=== PATIENT | male | born 1960 | race Caucasian/White ===

== ENCOUNTER 2017-05-03 11:15 | Outpatient (RCR) | payer BC | END 2017-06-24 16:13 | disposition home or self-care (01) | LOC: EDBD | PROVIDERS: ATTEND Nurse Practitioner Community Health | DX: M54.16 Radiculopathy, lumbar region (principal) ==

== ENCOUNTER 2023-01-07 11:36 | Observation (INO) | payer BC, OTHER ==
[~2023-01-07] VITALS: Ht 183 cm; Wt 72.5 kg
[2023-01-07] MEDS ORDERED: NS IV 1000 ML 1,000 ML IV STA (11:59)
--- NOTE | 2023-01-07 12:02 | ED General ---
General Chief Complaint: Glucose Problems Stated Complaint: HIGH BLOOD SUGAR Source of Information: Patient Exam Limitations: No Limitations (DIOMEDES ARNOLD) History of Present Illness Date Seen by Provider: Jan 07, 2023 Time Seen by Provider: 12:00 Initial Comments Patient is a 62-year-old male with a history of hypothyroidism, type 1 diabetes who presents ED for generalized weakness nausea vomiting. Symptoms started this morning. States he does have an insulin pump. Was not sure that his insulin pump was working last night. Works at [employer]. Found to have a blood sugar over 600 and was sent to the ED for further evaluation. Patient did not bolus himself. Denies of any visual changes, chest pain, fever, chills, body aches, cough, shortness of breath, abdominal pain, diarrhea, frequent urination, increa sed thirst. History of DKA in the past. (DIOMEDES ARNOLD) Allergies and Home Medications Allergies Coded Allergies: No Known Drug Allergies (Unverified , 01/07/23) Patient Home Medication List Home Medication List Reviewed: Yes (DIOMEDES ARNOLD) Aspirin (Aspirin EC) 81 Mg Tablet.dr, 81 MG PO DAILY, (Reported) Entered as Reported by: ESTHER LEON on 01/07/231505 Last Action: Reviewed Insulin Lispro (Insulin Lispro) 100 Unit/Ml Vial, UNIT SQ UD, (Reported) Entered as Reported by: ESTHER LEON on 01/07/231505 Last Action: Reviewed Levothyroxine Sodium (Levothyroxine Sodium) 150 Mcg Tablet, 150 MCG PO DAILY, (Reported) Entered as Reported by: ESTHER LEON on 01/07/231505 Last Action: Reviewed Review of Systems Review of Systems Constitutional: No chills, No diaphoresis, No fever; malaise, weakness EENTM: No ear pain, No blurred vision, No double vision Respiratory: No cough, No dyspnea on exertion Cardiovascular: No chest pain, No edema Gastrointestinal: No abdominal pain, No diarrhea; nausea, vomiting Genitourinary: No decreased output, No discharge Musculoskeletal: No back pain, No joint pain Skin: No change in color, No change in hair/nails (DIOMEDES ARNOLD) All Other Systems Reviewed Negative Unless Noted: Yes (DIOMEDES ARNOLD) Physical Exam Vital Signs Vital Signs - First Documented 01/07/23 11:53 Temp 36.0 Pulse 94 Resp 16 B/P (MAP) 141/78 (99) Pulse Ox 98 O2 Delivery Room Air (TRENTON KRAFT MD) Vital Signs Capillary Refill : (DIOMEDES ARNOLD) Height, Weight, BMI Height: '" Weight: lbs. oz. kg; BMI Method: General Appearance: No Apparent Distress, WD/WN Eyes: Bilateral Eye Normal Inspection, Bilateral Eye PERRL, Bilateral Eye EOMI HEENT: PERRL/EOMI, TMs Normal, Normal ENT Inspection, Pharynx Normal Neck: Full Range of Motion, Normal Inspection, Non Tender, Supple Respiratory: Chest Non Tender, Lungs Clear, Normal Breath Sounds, No Accessory Muscle Use, No Respiratory Distress Cardiovascular: Regular Rate, Rhythm, No Edema, No Gallop, No JVD Gastrointestinal: Normal Bowel Sounds, No Organomegaly, No Pulsatile Mass, Non Tender Extremity: Normal Capillary Refill, Normal Inspection, Normal Range of Motion, Non Tender Neurologic/Psychiatric: Alert, Oriented x3, No Motor/Sensory Deficits, Normal Mood/Affect, firewall engineer II-XII Norm as Tested Skin: Normal Color, Warm/Dry (DIOMEDES ARNOLD) Progress/Results/Core Measures Suspected Sepsis SIRS Temperature: Pulse: Respiratory Rate: Laboratory Tests 01/07/23 12:11: White Blood Count 12.6H Blood Pressure / Mean: Laboratory Tests 01/07/23 12:11: Creatinine 2.22H, Platelet Count 248, Total Bilirubin 1.2H (DIOMEDES ARNOLD) Results/Orders Lab Results Laboratory Tests Test 01/07/23 12:11 Range/Units White Blood Count 12.6 H 4.3-11.0 10^3/uL Red Blood Count 3.93 L 4.30-5.52 10^6/uL Hemoglobin 11.6 L 13.3-17.7 g/dL Hematocrit 35 L 40-54 % Mean Corpuscular Volume 88 80-99 fL Mean Corpuscular Hemoglobin 30 25-34 pg Mean Corpuscular Hemoglobin Concent 34 32-36 g/dL Red Cell Distribution Width 12.1 10.0-14.5 % Platelet Count 248 130-400 10^3/uL Mean Platelet Volume 9.7 9.0-12.2 fL Immature Granulocyte % (Auto) 1 % Neutrophils (%) (Auto) 87 H 42-75 % Lymphocytes (%) (Auto) 8 L 12-44 % Monocytes (%) (Auto) 3 0-12 % Eosinophils (%) (Auto) 0 0-10 % Basophils (%) (Auto) 1 0-10 % Neutrophils # (Auto) 11.0 H 1.8-7.8 10^3/uL Lymphocytes # (Auto) 1.0 1.0-4.0 10^3/uL Monocytes # (Auto) 0.4 0.0-1.0 10^3/uL Eosinophils # (Auto) 0.0 0.0-0.3 10^3/uL Basophils # (Auto) 0.1 0.0-0.1 10^3/uL Immature Granulocyte # (Auto) 0.1 0.0-0.1 10^3/uL Neutrophils % (Manual) 93 % Lymphocytes % (Manual) 3 % Monocytes % (Manual) 3 % Eosinophils % (Manual) 0 % Basophils % (Manual) 1 % Band Neutrophils 0 % Blood Morphology Comment NORMAL Venous Blood pH 7.21 L 7.31-7.41 Venous Blood Partial Pressure CO2 44 40-52 MMHG Venous Blood HCO3 17 L 22-28 MMOL/L Sodium Level 125 *L 135-145 MMOL/L Potassium Level 5.5 H 3.6-5.0 MMOL/L Chloride Level 87 L 98-107 MMOL/L Carbon Dioxide Level 15 L 21-32 MMOL/L Anion Gap 23 H 5-14 MMOL/L Blood Urea Nitrogen 40 H 7-18 MG/DL Creatinine 2.22 H 0.60-1.30 MG/DL Estimat Glomerular Filtration Rate 32 BUN/Creatinine Ratio 18 Glucose Level 764 *H 70-105 MG/DL Calcium Level 9.6 8.5-10.1 MG/DL Corrected Calcium 9.4 8.5-10.1 MG/DL Magnesium Level 2.4 1.6-2.4 MG/DL Total Bilirubin 1.2 H 0.1-1.0 MG/DL Aspartate Amino Transf (AST/SGOT) 33 5-34 U/L Alanine Aminotransferase (ALT/SGPT) 43 0-55 U/L Alkaline Phosphatase 79 40-136 U/L Total Protein 7.9 6.4-8.2 GM/DL Albumin 4.2 3.2-4.5 GM/DL Lipase 29 8-78 U/L Beta-Hydroxybutyrate (Chem panel) 8.76 H 0.00-0.27 MMOL/L (TRENTON KRAFT MD) Medications Given in ED Current Medications Medications Dose Ordered Sig/Annia Route Start Time Stop Time Status Last Admin Dose Admin Insulin Human Regular 10 unit ONCE ONCE SC 01/07/23 12:45 01/07/23 12:46 DC 01/07/23 13:14 10 UNIT (TRENTON KRAFT MD) Vital Signs/I&O 01/07/23 01/07/23 01/07/23 11:53 13:45 13:45 Temp 36.0 Pulse 94 81 89 Resp 16 16 B/P (MAP) 141/78 (99) 107/50 107/54 (71) Pulse Ox 98 97 97 O2 Delivery Room Air Room Air Room Air (TRENTON KRAFT MD) Vital Signs/I&O Capillary Refill : (DIOMEDES ARNOLD) Departure Communication (PCP) History of hypothyroidism type I diabetic with an insulin pump who presents ED for nausea weakness vomiting. Was found to be hyperglycemic at the clinic was sent to ED for further evaluation. Patient alert and orient x4. GCS of 15. Vital signs stable. Blood sugar was over 6 700. DKA protocol and work-up was initiated. Differential diagnosis hyperglycemia hyperosmolar state, DKA, viral syndrome. White blood count 12.6, hemoglobin 11. Chemistry showed sodium 125, chloride 87, creatinine 2.22, GFR 32, potassium 5.5. Concern for CARLTON likely secondary to dehydration. blood sugar 764. Beta hydroxybutyrate 8. Anion gap 23 and a VBG pH 7.21. Concerning for DKA. Started on a liter of fluid. Received bolus insulin 10. Patient did not bolus himself before arrival. Denies any chest pain short of breath fever chills body aches. Patient was not able to obtain a urinalysis. Patient was discussed with Dr. Anne hospitalist who agreed accept patient in the unit for insulin drip. (DIOMEDES ARNOLD) Impression Primary Impression: DKA (diabetic ketoacidosis) Disposition: ADMITTED INPATIENT Condition: Stable Admissions Decision to Admit Reason: Admit from ER (General) Decision to Admit/Date: Jan 07, 2023 Time/Decision to Admit Time: 12:35 (DIMOEDES ARNOLD) Departure-Patient Inst. Referrals: ESTHER PARSONS DO (PCP/Family) Primary Care Physician ATTENDING PHYSICIAN NOTE: I was physically present as attending physician in the emergency department during the care of this patient. I received phone report from Dr. Parsons regarding the patient's condition in the clinic. This information was passed on to CLAUDIA Palma, before patient's arrival. I did not personally interview or examine this patient, and I was not otherwise directly involved in the decision making or delivery of care for this patient. (TRENTON KRAFT MD) DIOMEDES ARNOLD Jan 07, 2023 12:02 TRENTON KRAFT MD Jan 07, 2023 17:00
[2023-01-07 12:19] LABS: BASOPHILS # (AUTO) 0.1 10^3/uL (0.0-0.1); BASOPHILS % (AUTO) 1 % (0-10); EOSINOPHILS % (AUTO) 0 % (0-10); HEMATOCRIT 35 % (40-54); HEMOGLOBIN 11.6 g/dL (13.3-17.7); LYMPHOCYTES % (AUTO) 8 % (12-44); MEAN CORPUSCULAR HEMOGLOBIN 30 pg (25-34); MEAN CORPUSCULAR HGB CONC 34 g/dL (32-36); MEAN CORPUSCULAR VOLUME 88 fL (80-99); MEAN PLATELET VOLUME 9.7 fL (9.0-12.2); MONOCYTES # (AUTO) 0.4 10^3/uL (0.0-1.0); MONOCYTES % (AUTO) 3 % (0-12); NEUTROPHILS % (AUTO) 87 % (42-75); PLATELET COUNT 248 10^3/uL (130-400); WHITE BLOOD COUNT 12.6 10^3/uL (4.3-11.0)
[2023-01-07 12:29] LABS: ALBUMIN 4.2 GM/DL (3.2-4.5)
[2023-01-07 12:30] LABS: CALCIUM 9.6 MG/DL (8.5-10.1)
[2023-01-07 12:31] LABS: TOTAL PROTEIN 7.9 GM/DL (6.4-8.2)
[2023-01-07 12:33] LABS: BILIRUBIN,TOTAL 1.2 MG/DL (0.1-1.0)
[2023-01-07 12:35] LABS: CREATININE SERUM 2.22 MG/DL (0.60-1.30)
[2023-01-07 12:38] LABS: MAGNESIUM 2.4 MG/DL (1.6-2.4)
[2023-01-07] MEDS ORDERED: inSUlin (REGULAR) HUMAN 1 UNIT/0.01 ML (CHARGE PER UNIT) SC ONE (12:45)
[2023-01-07 12:56] LABS: BAND NEUTROPHILS 0 %; BASOPHILS % (MANUAL) 1 %; EOSINOPHILS % (MANUAL) 0 %; LYMPHOCYTES % (MANUAL) 3 %; MONOCYTES % (MANUAL) 3 %; NEUTROPHILS % (MANUAL) 93 %; RBC MORPH NORMAL
[2023-01-07 13:06] LABS: POTASSIUM 5.5 MMOL/L (3.6-5.0)
--- NOTE | 2023-01-07 13:43 | History & Physical-Hospitalist ---
CYNTHIA VERA 01/07/23 1343: History of Present Illness HPI/Chief Complaint This is 62 year old male with a history of T1D and hypothyroidism who this morning had a level of 600 blood glucose. Patient woke up and felt generalized weakness, nausea, vomitting, dry mouth, and muscles ache- which all started at 5:30 AM. Patient believes his insulin pump was not working- unsure why that is. Patient reports that this has happened three times in his past- however, he is usually pretty controlled. Patient feels a little dehydrated currently and fatigued. He denies any fever, shortness of breath, and chest pain currently. Source: patient Date Seen 01/07/23 Time Seen by a Provider: 13:41 Attending Physician Hector Shepherd DO PCP Admitting Physician: Attending Physician: Referring Physician Date of Admission Home Medications & Allergies Home Medications Reviewed patient Home Medication Reconciliation performed by pharmacy medication reconciliations remote sensing technician and/or nursing. Patients Allergies have been reviewed. Allergies Allergies Coded Allergies No Known Drug Allergies ([id number]/16/23) Past Qtlmrna-Qopafr-Gtfdng Hx Patient Social History Marrital Status: Tobacco Use?: No Use of E-Cig and/or Vaping dev: No Substance use?: No Alcohol Use?: No Pt feels they are or have been: No Immunizations Up To Date Tetanus Booster (TDap): Less Than 5 Years Current Status Communicates: Verbally Primary Language: Jamaican Preferred Spoken Language: Jamaican Sensory deficits: Vision impairment Implanted or Applied Medical D: Medication pump Past Medical History Surgeries: Orthopedic (right shoulder, carpal tunnel, ulnar nerve entrapment) Review of Systems Constitutional: No fever EENTM: vision loss (pt reports decreasing vision); No ear pain Respiratory: No cough, No short of breath Gastrointestinal: No abdominal pain, No constipation Genitourinary: No decreased output, No discharge Musculoskeletal: muscle pain Skin: No change in color, No change in hair/nails Psychiatric/Neurological: Denies Anxiety, Denies Depressed Physical Exam Physical Exam Vital Signs Vital Signs - First Documented 01/07/23 11:53 Temp 36.0 Pulse 94 Resp 16 B/P (MAP) 141/78 (99) Pulse Ox 98 O2 Delivery Room Air Capillary Refill : Height, Weight, BMI Height: '" Weight: lbs. oz. kg; 21.00 BMI Method: Eyes: Bilateral Eye Normal Inspection HEENT: PERRL/EOMI, TMs Normal Neck: Full Range of Motion, Non Tender Respiratory: No Accessory Muscle Use, No Respiratory Distress Cardiovascular: Regular Rate, Rhythm, No Edema Gastrointestinal: Normal Bowel Sounds, No Pulsatile Mass Back: Normal Inspection, No CVA Tenderness Extremity: Normal Capillary Refill, Normal Range of Motion Neurologic/Psychiatric: Alert, Oriented x3, No Motor/Sensory Deficits Skin: Normal Color, Warm/Dry Results Results/Procedures Labs Laboratory Tests 01/07/23 12:11 Patient resulted labs reviewed. Assessment/Plan Admission Diagnosis Assessment: Diabetic Ketoacidosis Electrolyte abnormalities Hypothyroidism Dehydration Plan: Admit patient IV Insulin IV saline Monitor electrolytes Continue home medications CLARICE BLACK DO 01/08/23 0437: History of Present Illness HPI/Chief Complaint CC: DKA HPI: This is a 62yoWM [facility] patient who has a h/o Type 1 DM on insulin pump who presents to the ICU following dx of DKA after insulin pimp malfunction. He sees Endo on telehealth and Dr Doty is his Cylinder Batcher. Source: patient Exam Limitations: no limitations Past Exchorp-Aytimw-Rfejdw Hx Patient Social History Marrital Status: Employed/Student: employed Smoking Status: Never a Smoker Past Medical History Diabetes, Insulin dep Review of Systems Constitutional: see HPI Physical Exam Physical Exam General Appearance: No Apparent Distress, Chronically ill Respiratory: Lungs Clear, Normal Breath Sounds Cardiovascular: Regular Rate, Rhythm Neurologic/Psychiatric: Alert, Oriented x3 Assessment/Plan Admission Diagnosis DKA Insulin drip Admission Status: Inpatient Order (span 2 midnights) Reason for Inpatient Admission: DKA Supervisory-Addendum Brief Verification & Attestation Participated in pt care: history, MDM, physical Personally performed: exam, history, MDM, supervision of care Care discussed with: Medical Student Procedures: n/a Results interpretation: Verified all documentation Verification and Attestation of Medical Student E/M Service A medical student performed and documented this service in my presence. I reviewed and verified all information documented by the medical student and made modifications to such information, when appropriate. I personally performed the physical exam and medical decision making. Clarice Black, Jan 08, 2023,04:37 CYNTHIA VERA Jan 07, 2023 13:43 CLARICE BLACK DO Jan 08, 2023 04:37
[2023-01-07] MEDS ORDERED: HYDROmorphone INJECTION 2 MG/ML VIAL IV PRN (14:00)
[2023-01-07] MEDS ORDERED: diphenhydrAMINE 25 MG TABLET PO PRN (14:00)
[2023-01-07] MEDS ORDERED: diphenhydrAMINE INJ 50 MG/ML VIAL IVP PRN (14:00)
[2023-01-07] MEDS ORDERED: LACTULOSE SYRUP 10GM/15ML 30ML UDC PO PRN (14:00)
[2023-01-07] MEDS ORDERED: NS IV 1000 ML 1,000 ML IV SCH (14:00)
[2023-01-07] MEDS ORDERED: ACETAMINOPHEN 325 MG TABLET PO PRN (14:00)
[2023-01-07] MEDS ORDERED: ONDANSETRON 4 MG ORAL DISSOLVE TABLET PO PRN (14:00)
[2023-01-07] MEDS ORDERED: ONDANSETRON INJECTION 4 MG/2 ML (SDV) IV PRN (14:00)
[2023-01-07] MEDS ORDERED: NS IV 500 ML 500 ML IV PRN (14:00)
[2023-01-07] MEDS ORDERED: MELATONIN 3 MG TABLET PO PRN (14:00)
[2023-01-07] MEDS ORDERED: CALCIUM CARBONATE 500 MG CHEW TABLET PO PRN (14:00)
[2023-01-07] MEDS ORDERED: MILK OF MAGNESIA 400 MG/5 ML 30 ML UDC PO PRN (14:00)
[2023-01-07] MEDS ORDERED: ANTACID SUSPENSION 30 ML UDC PO PRN (14:00)
[2023-01-07] MEDS ORDERED: LORazepam 0.5 MG TABLET PO PRN (14:00)
[2023-01-07] MEDS ORDERED: BISACODYL 10 MG SUPPOSITORY PR PRN (14:00)
[2023-01-07] MEDS ORDERED: oxyCODONE IMMEDIATE RELEASE 5 MG TABLET PO PRN (14:00)
[2023-01-07] MEDS: 1/2 NS IV SOLUTION 1000 ML 1,000 ML IV SCH ×3 (14:12→22:05)
[2023-01-07 14:25] LABS: POTASSIUM 4.4 MMOL/L (3.6-5.0)
[2023-01-07 14:26] LABS: CALCIUM 9.2 MG/DL (8.5-10.1)
[2023-01-07 14:31] LABS: CREATININE SERUM 2.18 MG/DL (0.60-1.30)
[2023-01-07] MEDS ORDERED: ENOXAPARIN 40 MG/0.4 ML SYRINGE SC SCH (15:00)
[2023-01-07] MEDS ORDERED: LEVO150T6 PO (15:06)
[2023-01-07] MEDS ORDERED: ASPI-1238 PO (15:06)
[2023-01-07] MEDS ORDERED: INSU100V45 SQ (15:06)
[2023-01-07] MEDS: POTASSIUM CL 10MEQ/50ML IVPB 50 ML IV SCH ×5 (15:22→23:31)
--- NOTE | 2023-01-07 15:22 | Tele-ICU Consult ---
History of Present Illness History of Present Illness Date Seen by Provider: Jan 07, 2023 Time Seen by Provider: 15:20 Date of Admission (Tele-ICU Physician , consultation as per request of PCP Service provided via interactive audio and video teleUXCam E-CARE system to a patient admitted to ICU bed in [facility]. Available chart/ vitals / labs / Images reviewed H&P is from ER notes Patient's information available about PMH, Shx, Fhx allergy reviewed inEMR. CABRERA as per chart and RN report HPI: Pt is a 62 y/o M with hx of hypothyroidism, type 1 DM who presented to ED with c/o N/V and was found to have elevated sugar to 600s. Pt notes his insulin pump stopped working overnight. NO other complaints at this time. Labs notable for elevated WBC, CARLTON and elevated beta hydroxybutyrate. He was initiated on DKA protocol and admitted to MICU for closer monitoring A/P DKA: given elevated sugars of 600 and BHOB of 8 with AH of 23 consistent with DKA. -Cont insulin gtt per dka protocol. Hyponatermia: sodium 125, corrected 135 -cont insulin gtt/fluids per DKA protocol CARLTON:likely prerenal in setting of vomitting -Cont IVF hypokalemia: replace IV KCL Lines : periph , (Central Line Necessity Reviewed) Poole: Nutrition: npo VTE Prophylaxis: neisha 1`30 bid Stress Ulcer Prophylaxis: Plans in collaboration with bedside consultants and IM MDs. Discussed with RN to reach out if any questions or concerns A total of 15 minutes of critical care time was devoted to this patient today, required to treat and/or prevent further deterioration of critical care condition (as above ) Allergies and Home Medications Allergies Coded Allergies: No Known Drug Allergies (Unverified , 01/07/23) Home Medications Aspirin 81 Mg Tablet.dr, 81 MG PO DAILY, (Reported) Insulin Lispro 100 Unit/Ml Vial, UNIT SQ UD, (Reported) USES VIA PUMP Levothyroxine Sodium 150 Mcg Tablet, 150 MCG PO DAILY, (Reported) Past Medical/Social/Family Hx Patient Social History Marrital Status: Tobacco Use?: No Use of E-Cig and/or Vaping dev: No Substance use?: No Alcohol Use?: No Pt stated abuse/neglect: No Immunizations Up To Date Influenza Vaccine Up-to-Date: Yes; Up-to-Date Tetanus Booster (TDap): Less Than 5 Years Current Status Communicates: Verbally Primary Language: American Preferred Spoken Language: American Sensory deficits: Vision impairment Implanted or Applied Medical D: Medication pump Review of Systems Constitutional: see HPI EENTM: No see HPI, No no symptoms reported, No ear discharge, No hearing loss, No ear pain, No blurred vision, No double vision, No eye pain, No tearing, No vision loss, No dental problems, No hoarseness, No mouth pain, No mouth swelling, No epistaxis, No nose congestion, No nose pain, No throat pain, No throat swelling, No other Respiratory: No no symptoms reported, No see HPI, No cough, No dyspnea on exertion, No hemoptysis, No orthopnea, No phlegm, No short of breath, No stridor, No wheezing, No other Cardiovascular: No no symptoms reported, No see HPI, No chest pain, No edema, No Hx of Intervention, No palpitations, No syncope, No vascular heart diseas, No other Gastrointestinal: No RUQ, No LUQ, No RLQ, No LLQ, No no symptoms reported; see HPI; No abdominal pain, No constipation, No diarrhea, No dysphagia, No hematemesis, No heartburn, No jaundice, No loss of appetite, No melena; nausea; No vomiting, No other Genitourinary: see HPI Musculoskeletal: see HPI Skin: see HPI Psychiatric/Neurological: See HPI Focused Exam Height, Weight, BMI Height: '" Weight: lbs. oz. kg; 21.00 BMI Method: Exam Exam Patient acknowledged, consented, and participated in this virtual visit which was conducted using real time audio/video Vital Signs Date Time Temp Pulse Resp B/P (MAP) Pulse Ox O2 Delivery O2 Flow Rate FiO2 01/07/23 13:45 81 16 107/50 97 Room Air 01/07/23 11:53 36.0 94 16 141/78 (99) 98 Room Air Height & Weight Height: '" Weight: lbs. oz. kg; 21.00 BMI Method: General Appearance: No Apparent Distress, WD/WN HEENT: PERRL/EOMI, TMs Normal Neck: Full Range of Motion, Non Tender Respiratory: No Accessory Muscle Use, No Respiratory Distress Cardiovascular: Regular Rate, Rhythm, No Edema Extremity: Normal Capillary Refill, Normal Range of Motion Neurologic/Psychiatric: Alert, Oriented x3, No Motor/Sensory Deficits Skin: Normal Color, Warm/Dry Results Lab Laboratory Tests 01/07/23 12:11 01/07/23 14:08 Assessment/Plan Assessment/Plan . CORRY MACIEL MD Jan 07, 2023 15:22
[2023-01-07 16:06] VITALS: BP 107/50
[2023-01-07] MEDS ORDERED: RT-ALBUTEROL SULF 2.5 MG/3 ML PRE-MIX VIAL INH PRN (16:15)
[2023-01-07 16:30] LABS: POTASSIUM 4.8 MMOL/L (3.6-5.0)
[2023-01-07 16:31] LABS: CALCIUM 8.9 MG/DL (8.5-10.1)
[2023-01-07 16:36] LABS: CREATININE SERUM 1.94 MG/DL (0.60-1.30)
[2023-01-07 18:56] LABS: BILIRUBIN,URINE NEGATIVE (NEGATIVE); CLARITY,URINE CLEAR; COLOR,URINE YELLOW; GLUCOSE, URINE (UA) 2+ (NEGATIVE); KETONES,URINE 3+ (NEGATIVE); NITRITE,URINE NEGATIVE (NEGATIVE); PH,URINE 5.5 (5-9); PROTEIN,URINE NEGATIVE (NEGATIVE)
[2023-01-07 18:57] LABS: BACTERIA,URINE NEGATIVE /HPF; LEUKOCYTE ESTERASE ,URINE NEGATIVE (NEGATIVE); WBC,URINE RARE /HPF
[2023-01-07] MEDS: DOCUSATE SODIUM 100 MG CAPSULE PO SCH (20:08)
[2023-01-07] MEDS: SENNOSIDES 8.6 MG TABLET PO SCH (20:09)
[2023-01-07 22:26] LABS: POTASSIUM 4.8 MMOL/L (3.6-5.0)
[2023-01-07 22:31] LABS: CREATININE SERUM 1.57 MG/DL (0.60-1.30)
[2023-01-08] MEDS: D5 1/2 NS 1,000 ML IV 1,000 ML IV SCH ×2 (00:33→04:33)
[2023-01-08] MEDS: POTASSIUM CL 10MEQ/50ML IVPB 50 ML IV SCH ×2 (01:33→03:33)
[2023-01-08] MEDS: 1/2 NS IV SOLUTION 1000 ML 1,000 ML IV SCH ×2 (03:36→05:44)
[2023-01-08 04:47] LABS: BASOPHILS % (AUTO) 0 % (0-10); EOSINOPHILS # (AUTO) 0.2 10^3/uL (0.0-0.3); EOSINOPHILS % (AUTO) 2 % (0-10); HEMATOCRIT 26 % (40-54); HEMOGLOBIN 8.8 g/dL (13.3-17.7); LYMPHOCYTES # (AUTO) 2.7 10^3/uL (1.0-4.0); LYMPHOCYTES % (AUTO) 28 % (12-44); MEAN CORPUSCULAR HEMOGLOBIN 29 pg (25-34); MEAN CORPUSCULAR HGB CONC 34 g/dL (32-36); MEAN CORPUSCULAR VOLUME 84 fL (80-99); MEAN PLATELET VOLUME 9.6 fL (9.0-12.2); MONOCYTES # (AUTO) 0.8 10^3/uL (0.0-1.0); MONOCYTES % (AUTO) 8 % (0-12); NEUTROPHILS % (AUTO) 62 % (42-75); PLATELET COUNT 197 10^3/uL (130-400); WHITE BLOOD COUNT 9.6 10^3/uL (4.3-11.0)
[2023-01-08] MEDS ORDERED: inSUlin DETERMIR 1 UNIT/0.01 ML (CHARGE PER UNIT) SQ ONE (05:00)
[2023-01-08 05:03] LABS: ABG BASE EXCESS -0.2 MMOL/L (-2.5-2.5); ABG OXYGEN SATURATION 99 % (94-100); ABG PCO2 44 MMHG (35-45); ABG PH 7.36 (7.37-7.43); ABG PO2 92 MMHG (79-93); ABG TCO2 25.9 MMOL/L (21.0-31.0); ALLENS TEST YES-POS; INSPIRED O2 RA; PATIENT TEMP 37; VENTILATOR NO
[2023-01-08 05:57] LABS: ALBUMIN 3.5 GM/DL (3.2-4.5)
[2023-01-08 05:58] LABS: POTASSIUM 4.3 MMOL/L (3.6-5.0)
[2023-01-08 05:59] LABS: CALCIUM 8.1 MG/DL (8.5-10.1)
[2023-01-08 06:00] LABS: TOTAL PROTEIN 6.4 GM/DL (6.4-8.2)
[2023-01-08] MEDS ORDERED: POTASSIUM CL 10MEQ/50ML IVPB 50 ML IV SCH (06:00)
[2023-01-08] MEDS ORDERED: POTASSIUM CHLORIDE 20 MEQ TABLET PO SCH (06:00)
[2023-01-08] MEDS ORDERED: MAGNESIUM 1 GM/100 ML IVPB 100 ML IV SCH (06:00)
[2023-01-08 06:02] LABS: BILIRUBIN,TOTAL 0.7 MG/DL (0.1-1.0)
[2023-01-08 06:03] LABS: PHOSPHORUS 2.3 MG/DL (2.3-4.7)
[2023-01-08 06:04] LABS: CREATININE SERUM 1.41 MG/DL (0.60-1.30)
[2023-01-08] MEDS: inSUlin ASPART 1 UNIT/0.01 ML (PER UNIT) SQ SCH ×2 (06:11→11:20)
[2023-01-08] MEDS: DOCUSATE SODIUM 100 MG CAPSULE PO SCH (09:30)
[2023-01-08] MEDS: SENNOSIDES 8.6 MG TABLET PO SCH (09:30)
--- NOTE | 2023-01-08 11:44 | Discharge Summary ---
Discharge Summary Hospital Course Problems/Dx: (1) DKA (diabetic ketoacidosis) Status: Acute Hospital Course Date of Admission: Jan 07, 2023 at 13:49 Admission Diagnosis : Family Physician/Provider: Hector Shepherd DO Date of Discharge: 01/08/23 Discharge Diagnosis: DKA Hospital Course: Pt admitted for DKA, BG on admission >600. He was admitted to the ICU and placed on insulin drip, under DKA protocol. He was eventually stable to start long-acting insulin and bridge off the drip. He remained stable throughout his stay and was able to discharge home on 01/08. Labs and Pending Lab Test: Laboratory Tests 01/07/23 12:11: White Blood Count 12.6H, Red Blood Count 3.93L, Hemoglobin 11.6L, Hematocrit 35L , Mean Corpuscular Volume 88, Mean Corpuscular Hemoglobin 30, Mean Corpuscular Hemoglobin Concent 34, Red Cell Distribution Width 12.1, Platelet Count 248, Mean Platelet Volume 9.7, Immature Granulocyte % (Auto) 1, Neutrophils (%) (Auto) 87H, Lymphocytes (%) (Auto) 8L, Monocytes (%) (Auto) 3, Eosinophils (%) (Auto) 0, Basophils (%) (Auto) 1, Neutrophils # (Auto) 11.0H, Lymphocytes # (Auto) 1.0, Monocytes # (Auto) 0.4, Eosinophils # (Auto) 0.0, Basophils # (Auto) 0.1, Immature Granulocyte # (Auto) 0.1, Neutrophils % (Manual) 93, Lymphocytes % (Manual) 3, Monocytes % (Manual) 3, Eosinophils % (Manual) 0, Basophils % (Manu al) 1, Band Neutrophils 0, Blood Morphology Comment NORMAL, Venous Blood pH 7.21L, Venous Blood Partial Pressure CO2 44, Venous Blood HCO3 17L, Sodium Level 125*L, Potassium Level 5.5H, Chloride Level 87L, Carbon Dioxide Level 15L, Anion Gap 23H, Blood Urea Nitrogen 40H, Creatinine 2.22H, Estimat Glomerular Filtration Rate 32, BUN/Creatinine Ratio 18, Glucose Level 764*H, Calcium Level 9.6, Corrected Calcium 9.4, Magnesium Level 2.4, Total Bilirubin 1.2H, Aspartate Amino Transf (AST/SGOT) 33, Alanine Aminotransferase (ALT/SGPT) 43, Alkaline Phosphatase 79, Total Protein 7.9, Albumin 4.2, Lipase 29, Beta-Hydroxybutyrate (Chem panel) 8.76H 01/07/23 14:07: Glucometer 594*H 01/07/23 14:08: Sodium Level 129L, Potassium Level 4.4, Chloride Level 91L, Carbon Dioxide Level 15L, Anion Gap 23H, Blood Urea Nitrogen 41H, Creatinine 2.18H, Estimat Glomerular Filtration Rate 33, BUN/Creatinine Ratio 19, Glucose Level 672*H, Calcium Level 9.2, Beta-Hydroxybutyrate (Chem panel) 8.59H, Mean Blood Glucose 255H, Hemoglobin A1c 10.5H 01/07/23 15:20: Glucometer 564*H 01/07/23 15:50: Sodium Level 128L, Potassium Level 4.8, Chloride Level 94L, Carbon Dioxide Level 13L, Anion Gap 21H, Blood Urea Nitrogen 39H, Creatinine 1.94H, Estimat Glomerular Filtration Rate 38, BUN/Creatinine Ratio 20, Glucose Level 578*H, Calcium Level 8.9 01/07/23 16:22: Glucometer 480*H 01/07/23 17:26: Glucometer 424*H 01/07/23 18:30: Urine Color YELLOW, Urine Clarity CLEAR, Urine pH 5.5, Urine Specific [employer] 1.020, Urine Protein NEGATIVE, Urine Glucose (UA) 2+H, Urine Ketones 3+H, Urine Nitrite NEGATIVE, Urine Bilirubin NEGATIVE, Urine Urobilinogen 0.2, Urine Leukocyte Esterase NEGATIVE, Urine RBC (Auto) NEGATIVE, Urine RBC NONE, Urine WBC RARE, Urine Squamous Epithelial Cells NONE, Urine Crystals NONE, Urine Bacteria NEGATIVE, Urine Casts NONE, Urine Mucus NEGATIVE, Urine Culture Indicated NO 01/07/23 18:32: Glucometer 389H 01/07/23 19:35: Glucometer 368H 01/07/23 20:24: Glucometer 324H 01/07/23 21:39: Glucometer 310H 01/07/23 22:00: Sodium Level 129L, Potassium Level 4.8, Chloride Level 97L, Carbon Dioxide Level 24, Anion Gap 8, Blood Urea Nitrogen 31H, Creatinine 1.57H, Estimat Glomerular Filtration Rate 49, BUN/Creatinine Ratio 20, Glucose Level 319H, Calcium Level 8.0L 01/07/23 23:26: Glucometer 257H 01/08/23 00:32: Glucometer 203H 01/08/23 01:36: Glucometer 203H 01/08/23 02:46: Glucometer 172H 01/08/23 03:31: Glucometer 156H 01/08/23 04:27: White Blood Count 9.6, Red Blood Count 3.04L, Hemoglobin 8.8#L, Hematocrit 26L, Mean Corpuscular Volume 84, Mean Corpuscular Hemoglobin 29, Mean Corpuscular Hemoglobin Concent 34, Red Cell Distribution Width 12.3, Platelet Count 197, Mean Platelet Volume 9.6, Immature Granulocyte % (Auto) 0, Neutrophils (%) (Auto) 62, Lymphocytes (%) (Auto) 28, Monocytes (%) (Auto) 8, Eosinophils (%) (Auto) 2, Basophils (%) (Auto) 0, Neutrophils # (Auto) 6.0, Lymphocytes # (Auto) 2.7, Monocytes # (Auto) 0.8, Eosinophils # (Auto) 0.2, Basophils # (Auto) 0.0, Immature Granulocyte # (Auto) 0.0 01/08/23 04:29: Glucometer 118H 01/08/23 05:00: Blood Gas Puncture Site LR, Blood Gas Patient Temperature 37, Arterial Blood pH 7.36L, Arterial Blood Partial Pressure CO2 44, Arterial Blood Partial Pressure O2 92, Arterial Blood HCO3 25, Arterial Blood Total CO2 25.9, Arterial Blood Oxygen Saturation 99, Arterial Blood Base Excess -0.2, Praful Test YES-POS, Blood Gas Ventilator Setting NO, Blood Gas Inspired Oxygen RA 01/08/23 05:35: Sodium Level 133L, Potassium Level 4.3, Chloride Level 102, Carbon Dioxide Level 23, Anion Gap 8, Blood Urea Nitrogen 27H, Creatinine 1.41H, Estimat Glomerular Filtration Rate 56, BUN/Creatinine Ratio 19, Glucose Level 100, Calcium Level 8.1L, Corrected Calcium 8.5, Phosphorus Level 2.3, Magnesium Level 2.0, Total Bilirubin 0.7, Aspartate Amino Transf (AST/SGOT) 28, Alanine Aminotransferase (ALT/SGPT) 32, Alkaline Phosphatase 66, Total Protein 6.4, Albumin 3.5 01/08/23 10:49: Glucometer 196H Home Meds Active Reported Aspirin EC (Aspirin) 81 Mg Tablet.dr 81 Mg PO DAILY Insulin Lispro 100 Unit/Ml Vial Unit SQ UD USES VIA PUMP Levothyroxine Sodium 150 Mcg Tablet 150 Mcg PO DAILY Assessment/Pt Instructions DKA Follow-up with PCP in 7-14 days after discharge. Discharge Instructions Discharge Diet: No Restrictions Activity as Tolerated: Yes Discharge Physical Examination Vital Signs Vital Signs Date Time Temp Pulse Resp B/P (MAP) Pulse Ox O2 Delivery O2 Flow Rate FiO2 01/08/23 11:00 74 10 134/80 (98) 96 Room Air 01/08/23 03:36 36.7 01/07/23 16:06 21 General Appearance: No Apparent Distress Respiratory: Normal Breath Sounds, No Accessory Muscle Use, No Respiratory Distress Cardiovascular: Regular Rate, Rhythm Gastrointestinal: Non Tender, Soft Extremity: No Pedal Edema Skin: Warm/Dry Neurologic/Psychiatric: Alert, Oriented x3, Normal Mood/Affect Allergies: Coded Allergies: No Known Drug Allergies (Unverified , 01/07/23) Discharge Summary Date of Admission Jan 07, 2023 at 13:49 Date of Discharge Admission Diagnosis DKA Insulin KATE Hanks MD,RESIDENT Jan 08, 2023 11:44
== END 2023-01-08 14:35 | disposition home or self-care (01) ==
LOC: EDUNIT# 11:36 → ER 11:39 → ICU 13:49
PROVIDERS: ADMIT Internal Medicine; ATTEND Internal Medicine
DX: E10.10 Type 1 diabetes mellitus with ketoacidosis without coma (principal); E87.8 Other disorders of electrolyte and fluid balance, not elsewhere classified; E86.0 Dehydration; E87.1 Hypo-osmolality and hyponatremia; N17.9 Acute kidney failure, unspecified; E87.6 Hypokalemia; Z79.82 Long term (current) use of aspirin; Z79.890 Hormone replacement therapy
CPT/HCPCS: 36415; 80048; 80053; 81000; 82010; 82805; 82947; 83036; 83690; 83735; 84100; 85007; 85025; 85027; 87081; 96361; 96366; 96372; 96374; 96375; 96376; G0378